=== PATIENT | male | born 1975 | race Caucasian/White ===

== ENCOUNTER 2021-03-08 10:08 | Emergency (ER) | payer OTHER ==
[~2021-03-08] VITALS: Ht 172.7 cm; Wt 129.5 kg
[2021-03-08 10:22] VITALS: BP 148/110
--- NOTE | 2021-03-08 10:30 | NUR ---
PT COVID TESTED.
[2021-03-08] MEDS ORDERED: PRED20TA PO (11:33)
[2021-03-08] MEDS ORDERED: ALBU6.7H9 INH (11:33)
== END 2021-03-08 12:05 | disposition home or self-care (01) ==
LOC: ER 10:08
DX: J20.9 Acute bronchitis, unspecified (principal); Z20.822 Contact with and (suspected) exposure to COVID-19; J45.20 Mild intermittent asthma, uncomplicated; R11.0 Nausea; R53.83 Other fatigue; R05 Cough; R50.9 Fever, unspecified; R51.9 Headache, unspecified; I10 Essential (primary) hypertension; F17.200 Nicotine dependence, unspecified, uncomplicated; Z79.899 Other long term (current) drug therapy
CPT/HCPCS: 71045; 87635; 99284; C9803